=== PATIENT | male | born 1975 | race Caucasian/White ===

== ENCOUNTER 2020-05-29 06:05 | Day surgery (SDC) | payer OTHER ==
[2020-05-26 14:51] LABS: BASOPHIL % 1.1 % (0.2-1.5); PLATELET COUNT 248 x10^3mcL (152-348)
[2020-05-26 15:04] LABS: ALBUMIN 3.9 g/dL (3.4-5.0); ALKALINE PHOSPHATASE 102 U/L (46-116); ALT/SGPT 68 U/L (16-63); AST/SGOT 27 U/L (15-37); BILIRUBIN TOTAL 0.4 mg/dL (0.20-1.00); CARBON DIOXIDE 33.4 mmol/L (21-32); CHLORIDE SERUM 104 mmol/L (98-107); GFR1 > 60 mL/min; GLUCOSE SERUM 94 mg/dL (74-106); POTASSIUM SERUM 3.7 mmol/L (3.5-5.1); SODIUM SERUM 140 mmol/L (136-145); TOTAL PROTEIN, SERUM 7.5 g/dL (6.4-8.2)
[~2020-05-29] VITALS: Ht 177.8 cm; Wt 106.6 kg
[2020-05-29 06:42] VITALS: BP 137/90
[2020-05-29 12:34] VITALS: BP 139/87
== END 2020-05-29 11:55 | disposition home or self-care (01) ==
LOC: DS 06:05 → OR 07:30 → DS 11:55
PROVIDERS: ATTEND Urology
DX: N47.1 Phimosis (principal); N48.1 Balanitis; E66.3 Overweight; Z68.33 Body mass index [BMI] 33.0-33.9, adult
CPT/HCPCS: J0131; J0330; J0690; J2001; J2250; J2704; J2710; J3010; J3490; J7120